=== PATIENT | female | born 1975 | race Caucasian/White ===

== ENCOUNTER 2017-03-26 18:39 | Emergency (ER) | payer OTHER ==
[~2017-03-26] VITALS: Ht 167.6 cm; Wt 85.0 kg
[~2017-03-26 18:39] MED LIST: [UNRECOGNIZED DRUG - REMARK]
[2017-03-26 18:43] VITALS: BP 116/80
== END 2017-03-26 20:00 | disposition home or self-care (01) ==
LOC: ED 19:45
DX: G89.11 Acute pain due to trauma (principal); M25.572 Pain in left ankle and joints of left foot; X50.1XXA Overexertion from prolonged static or awkward postures, initial encounter; Y93.89 Activity, other specified; Y99.8 Other external cause status; Y92.009 Unspecified place in unspecified non-institutional (private) residence as the place of occurrence of the external cause
CPT/HCPCS: 99284